=== PATIENT | female | born 1940 | race Two or more races ===

== ENCOUNTER 2017-01-20 01:04 | Observation (INO) | payer MEDICAID, OTHER ==
[~2017-01-20 01:04] MED LIST: LISI-515 PO; METF1000 PO
[2017-01-20 01:29] VITALS: BP 183/78; PULSE 84; RESP 16; TEMP 97.7; O2SAT 95
[2017-01-20] MEDS ORDERED: GLUCAGON 1 MG/ML VIAL IM PRN (02:30)
[2017-01-20] MEDS ORDERED: NALOXONE HCL 0.4 MG/ML AMP IV PUSH PRN (02:30)
[2017-01-20] MEDS ORDERED: ONDANSETRON HCL 4 MG/2 ML VIAL IVP PRN (02:30)
[2017-01-20] MEDS ORDERED: DEXTROSE 50% IN WATER 50 ML VIAL(D50) IV PUSH PRN ×2 (02:30→16:30)
[2017-01-20] MEDS ORDERED: ACETAMINOPHEN 325 MG TAB PO PRN (02:30)
[2017-01-20] MEDS ORDERED: SODIUM CHLORIDE 0.9% FLUSH 10 ML FLUSH IV FLUSH PRN (02:30)
[2017-01-20] MEDS ORDERED: DEXT 5%-NACL 0.45% 1000 ML INJ 1,000 ML IV SCH (03:15)
[2017-01-20 03:33] VITALS: BP 177/74; PULSE 84; RESP 16; TEMP 98.3; O2SAT 94
[2017-01-20 04:49] VITALS: PULSE 75
[2017-01-20 08:33] VITALS: BP 140/84; RESP 20; TEMP 97.8; O2SAT 96
[2017-01-20] MEDS: SODIUM CHLORIDE 0.9% FLUSH 10 ML FLUSH IV FLUSH SCH ×2 (09:00→21:00)
[2017-01-20 11:39] LABS: AUTOMATED NEUTROPHIL # 4.7 TH/MM3 (1.8-7.7); BASOPHIL % 0.7 % (0.0-2.0); EOSINOPHIL # 0.1 TH/MM3 (0-0.4); EOSINOPHIL % 1.9 % (0.0-4.0); HEMATOCRIT 35.3 % (35.0-46.0); HEMO FLAGS DIFF FINAL; LYMPH % 18.5 % (9.0-44.0); LYMPHOCYTE # 1.2 TH/MM3 (1.0-4.8); MEAN CELL VOLUME 85.6 FL (80.0-100.0); MEAN CORPUSCULAR HEMOGLOBIN 28.6 PG (27.0-34.0); MEAN CORPUSCULAR HGB CONC 33.4 % (32.0-36.0); MONO % 6.9 % (0.0-8.0); PLATELET COUNT 213 TH/MM3 (150-450); RED BLOOD COUNT 4.13 MIL/MM3 (4.00-5.30); WHITE BLOOD COUNT 6.5 TH/MM3 (4.0-11.0)
[2017-01-20 12:02] LABS: BICARBONATE 29.2 MEQ/L (21.0-32.0); POTASSIUM 3.2 MEQ/L (3.5-5.1)
--- NOTE | 2017-01-20 14:29 | HHI.HP ---
HPI Service [facility] Primary Care Physician Unknown Admission Diagnosis Diagnoses: (1) Hypoglycemia (2) Hypertension Chief Complaint: Hypoglycemia Travel History International Travel<30 Days: No Contact w/Intl Traveler <30 Da: No Traveled to Known Affected Are: No History of Present Illness is a 76-year-old female, Mandarin speaking patient, with a known medical history of diabetes mellitus and hypertension who presented to the ED with hypoglycemia. [employer] interpreting service was used for the interview with patient and family. Patient states that she was feeling dizzy and lightheaded for the past couple days. On Sunday afternoon patient's family noticed that she was unable to verbally respond and lethargic. Blood sugar on admission was 33. She was given 1 amp of D50 IV. After administration patient became more alert and awake. Currently patient is sitting up in bed awake, alert and oriented. Tolerating PO intake with no dysphagia. She has been compliant with her Metformin for control of her diabetes. She also states that she checks her blood sugar once a week. Upon presentation patient was also hypertensive, does take Lisinopril at home. Denies any recent fever, chills, headache, chest pain, palpitations, cough, shortness of breath, abdominal pain, nausea, vomiting, diarrhea or dysuria. Review of Systems Constitutional: DENIES: Fever, Chills Eyes: COMPLAINS OF: Blurred vision, DENIES: Diplopia, Vision loss Respiratory: DENIES: Cough, Wheezing, Shortness of breath Cardiovascular: DENIES: Chest pain Gastrointestinal: DENIES: Abdominal pain, Constipation, Diarrhea, Nausea, Vomiting Psychiatric: DENIES: Anxiety Except as stated in HPI: all other systems reviewed are Neg Past Family Social History Past Medical History Hypertension Diabetes mellitus Past Surgical History None Reported Medications Reported Meds & Active Scripts Active Reported Metformin (Metformin HCl) 1,000 Mg Tab 1,000 Mg PO BIDPC Lisinopril 20 Mg Tab 20 Mg PO DAILY Allergies: Coded Allergies: No Known Allergies (Unverified , 01/19/17) Active Ordered Medications Current Medications Medications (Trade) Dose Ordered Sig/Neelima Route Start Time Stop Time Status Last Admin (NS Flush) 2 ml UNSCH PRN IV FLUSH 01/20/17 02:30 (NS Flush) 2 ml BID IV FLUSH 01/20/17 09:00 (Tylenol) 650 mg Q4H PRN PO 01/20/17 02:30 01/20/17 09:36 (Zofran Inj) 4 mg Q6H PRN IVP 01/20/17 02:30 (Narcan Inj) 0.4 mg UNSCH PRN IV PUSH 01/20/17 02:30 (D50w (Vial) Inj) 50 ml UNSCH PRN IV PUSH 01/20/17 02:30 01/20/17 03:22 (Glucagon Inj) 1 mg STAT PRN IM 01/20/17 02:30 Dextrose/Sodium Chloride 1,000 ml @ 75 mls/hr [id number] IV 01/20/17 03:15 01/20/17 03:23 (Prinivil) 20 mg DAILY PO 01/20/17 15:00 (Glucophage) 500 mg BIDPC PO 01/20/17 18:00 Family History None Social History Denies any tobacco use. Denies any alcohol use. Denies any illicit drug use. Physical Exam Vital Signs Vital Signs Date Time Temp Pulse Resp B/P (MAP) Pulse Ox O2 Delivery O2 Flow Rate FiO2 01/20/17 08:33 97.8 20 140/84 (102) 96 01/20/17 04:49 75 01/20/17 03:33 98.3 84 16 177/74 (108) 94 01/20/17 01:29 97.7 84 16 183/78 (113) 95 Physical Exam GENERAL: This is a well-nourished, well-developed patient, in no apparent distress. Lying in bed comfortably. SKIN: No rashes, ecchymoses or lesions. Warm and dry. HEENT: Atraumatic. Normocephalic. Pupils equal round and reactive. Extraocular motions intact. No scleral icterus. No injection or drainage. Nose without bleeding. Throat without erythema, tonsillar hypertrophy or exudate. Uvula midline. Airway patent. NECK: Trachea midline. No JVD or lymphadenopathy. Supple. CARDIOVASCULAR: Regular rate and rhythm without murmurs, gallops, or rubs. RESPIRATORY: Clear to auscultation. Breath sounds equal bilaterally. No wheezes , rales, or rhonchi. GASTROINTESTINAL: Abdomen soft, non-tender, nondistended. . No guarding. MUSCULOSKELETAL: Extremities without clubbing, cyanosis, or edema. No joint tenderness, effusion, or edema noted. NEUROLOGICAL: Awake and alert. Cranial nerves II through XII intact. Motor and sensory grossly within normal limits. Five out of 5 muscle strength in all muscle groups. Normal speech. Laboratory Laboratory Tests Test 01/20/17 04:40 01/20/17 08:07 01/20/17 10:20 Total Creatine Kinase 28 28 Troponin I 0.08 0.08 White Blood Count 6.5 Red Blood Count 4.13 Hemoglobin 11.8 Hematocrit 35.3 Mean Corpuscular Volume 85.6 Mean Corpuscular Hemoglobin 28.6 Mean Corpuscular Hemoglobin Concent 33.4 Red Cell Distribution Width 15.0 Platelet Count 213 Mean Platelet Volume 8.1 Neutrophils (%) (Auto) 72.0 Lymphocytes (%) (Auto) 18.5 Monocytes (%) (Auto) 6.9 Eosinophils (%) (Auto) 1.9 Basophils (%) (Auto) 0.7 Neutrophils # (Auto) 4.7 Lymphocytes # (Auto) 1.2 Monocytes # (Auto) 0.5 Eosinophils # (Auto) 0.1 Basophils # (Auto) 0.0 CBC Comment DIFF FINAL Differential Comment Blood Urea Nitrogen 9 Creatinine 0.57 Random Glucose 241 Calcium Level 8.6 Sodium Level 140 Potassium Level 3.2 Chloride Level 105 Carbon Dioxide Level 29.2 Anion Gap 6 Estimat Glomerular Filtration Rate 104 Result Diagram: 01/20/17 1020 01/20/17 1020 Caprini VTE Risk Assessment Caprini VTE Risk Assessment: Mod/High Risk (score >= 2) Caprini Risk Assessment Model Point Value = 1 Point Value = 2 Point Value = 3 Point Value = 5 Age 41-60 Minor surgery BMI > 25 kg/m2 Swollen legs Varicose veins or History of unexplained or recurrent spontaneous Oral contraceptives or hormone replacement Sepsis (< 1 month) Serious lung disease, including pneumonia (< 1 month) Abnormal pulmonary function Acute myocardial infarction Congestive heart failure (< 1 month) History of inflammatory bowel disease Medical patient at bed rest Age 61-74 Arthroscopic surgery Major open surgery (> 45 min) Laparoscopic surgery (> 45 min) Malignancy Confined to bed (> 72 hours) Immobilizing plaster cast Central venous access Age >= 75 History of VTE Family history of VTE Factor V Leiden Prothrombin [id number] Lupus anticoagulant Anticardiolipin antibodies Elevated serum homocysteine Heparin-induced thrombocytopenia Other congenital or acquired thrombophilia Stroke (< 1 month) Elective arthroplasty Hip, pelvis, or leg fracture Acute spinal cord injury (< 1 month) Prophylaxis Regimen Total Risk Factor Score Risk Level Prophylaxis Regimen 0-1 Low Early ambulation 2 Moderate Order ONE of the following: *Sequential Compression Device (SCD) *Heparin 5000 units SQ BID 3-4 Higher Order ONE of the following medications: *Heparin 5000 units SQ TID *Enoxaparin/Lovenox 40 mg SQ daily (WT < 150 kg, CrCl > 30 mL/min) *Enoxaparin/Lovenox 30 mg SQ daily (WT < 150 kg, CrCl > 10-29 mL/min) *Enoxaparin/Lovenox 30 mg SQ BID (WT < 150 kg, CrCl > 30 mL/min) AND/OR *Sequential Compression Device (SCD) 5 or more Highest Order ONE of the following medications: *Heparin 5000 units SQ TID (Preferred with Epidurals) *Enoxaparin/Lovenox 40 mg SQ daily (WT < 150 kg, CrCl > 30 mL/min) *Enoxaparin/Lovenox 30 mg SQ daily (WT < 150 kg, CrCl > 10-29 mL/min) *Enoxaparin/Lovenox 30 mg SQ BID (WT < 150 kg, CrCl > 30 mL/min) AND *Sequential Compression Device (SCD) Assessment and Plan Assessment and Plan is a 76-year-old female, Mandarin speaking patient, with a known medical history of diabetes mellitus and hypertension who presented to the ED with hypoglycemia. [employer] interpreting service was used for the interview with patient and family. Patient states that she was feeling dizzy and lightheaded for the past couple days. On Sunday afternoon patient's family noticed that she was unable to verbally respond and lethargic. Blood sugar on admission was 23. She was given 1 amp of D50 IV. Type 2 Diabetes Mellitus chronic Hypoglycemia - Head CT was reviewed showing remote small infarct on the right. No acute findings. - CXR reviewed showing cardiomegaly. No focal infiltrate or effusion. - Was initially placed on D5 IVF, now stopped due to resolution of hypoglycemia. - Patient on Metformin 1000 mg PO BID at home, will decrease Metformin to 500 mg PO BID to prevent hypoglycemia. Patient encouraged to follow up with PCP after discharge. - ACCU checks ordered for ACHS, sliding scale insulin cover as needed. Hemoglobin a1C pending. Encouraged to have patient check blood sugars twice a day until seen by PCP. - Troponins flat x 3. EKG reviewed with LVH, no arrhythmias. Order for another EKG. Follow. Hypertension, chronic: BP on presentation was 183/78. Trending down. Restarted patient on her home Lisinopril. Continue to monitor. Currently 140/84. Hypokalemia: K 3.2. Replacement ordered. Monitor. DVT Prophylaxis: SCDs. Attestation Patient seen and examined with LOUISE Blakely. The exam, history, and the medical decision-making described in the above note were completed with the assistance of the dictating practitioner. I attest that I had a [id number] encounter with the patient on the same day, and personally performed all of the history, exam, or medical decision making. Discussed case with her thoroughly after seeing the patient, reviewed and agreed with the plan. Please see addendum in History, Physical examination. See below for any errata/additional input: Blood glucose now more stable. Mental status back to normal. Patient denies any chest pain, however very poor historian. Regular rate and rhythm, no murmurs Clear breath sounds Abdomen soft Moves extremities Troponin 3 mildly elevated. Repeat EKG showed mild ST depression in V3 to V5, mild LVH. No ST elevations. However patient is a poor historian with mild troponin elevation. Will consult cardiology. Arlet Hawkins Jan 20, 2017 14:29 Claude Silverio MD Jan 20, 2017 16:07
[2017-01-20] MEDS ORDERED: POTASSIUM CHLORIDE 25 MEQ EFFERVESCENT TAB PO ONE (15:00)
[2017-01-20] MEDS ORDERED: GLUCAGON 1 MG/ML VIAL OTHER PRN (16:30)
[2017-01-20] MEDS: INSULIN ASPART SUPPLEMENTAL SCALE SQ SCH ×2 (17:00→21:00)
[2017-01-20] MEDS: metFORMIN HCL 500 MG TAB PO SCH (17:47)
[2017-01-20] MEDS: LISINOPRIL 20 MG TAB PO SCH (18:00)
[2017-01-20] MEDS ORDERED: metFORMIN HCL 500 MG TAB PO SCH (18:00)
--- NOTE | 2017-01-20 19:04 | MB ---
cc: GERBER KAMINSKI DATE OF CONSULTATION: 01/20/2017. HISTORY OF PRESENT ILLNESS: is a 76-year-old [place]oth[place] female with a history of diabetes mellitus and hypertension. She presented with hypoglycemia. She has not had any chest pain or shortness of breath. She was found to have an abnormal EKG. PAST MEDICAL HISTORY: Positive for: 1. Hypertension. 2. Diabetes mellitus. 3. No previous cardiac history. MEDICATIONS: 1. Lisinopril 20 milligrams a day. 2. Metformin 1000 milligrams twice a day. ALLERGIES: None. SOCIAL HISTORY: The patient does not smoke. She does not drink alcohol. FAMILY HISTORY: Negative for heart disease. REVIEW OF SYSTEMS: Review of systems otherwise negative. PHYSICAL EXAMINATION: VITAL SIGNS: Blood pressure 140/84, pulse 75 and regular. HEAD, EYES, EARS, NOSE, THROAT: Negative. NECK: 2+ carotid upstrokes, no bruits. LUNGS: Clear. HEART: Regular with no murmurs, rubs or gallops. ABDOMEN: Abdomen soft. No bruits. EXTREMITIES: Without edema. 2+ distal pulses. NEUROLOGIC: Grossly nonfocal. EKGS: EKG was reviewed and showed normal sinus rhythm, normal axis, left ventricular hypertrophy and nonspecific S-T-T changes likely secondary to left ventricular hypertrophy. LABORATORY DATA: Hemoglobin 11.8. Potassium 3.2, creatinine 0.6, glucose 241. CK 28 and 28. Troponin 0.08 and 0.08. DIAGNOSIS: 1. An abdominal EKG consistent with left ventricular hypertrophy. 2. Hypertension. 3. Diabetes mellitus. 4. Mildly abnormal troponin. DISPOSITION: will be monitored on telemetry. We will obtain echocardiogram to evaluate her left ventricular function. We will also obtain serial EKGs and enzymes. I will follow her for cardiology during her hospitalization. MD MO Pena/UYEN /6:07 PM /6:58 PM
[2017-01-20 19:24] VITALS: BP 184/76; PULSE 71; RESP 20; TEMP 98.7; O2SAT 93
[2017-01-20] MEDS ORDERED: POTASSIUM CHLORIDE 10 MEQ CONTROLLED RELEASE TAB PO ONE (19:30)
[2017-01-20 20:00] VITALS: PULSE 70
[2017-01-21] VITALS (7 sets, daily range): BP systolic 158–178; BP diastolic 75–90; PULSE 73–82; RESP 16–20; TEMP 97.5–98.2; O2SAT 94–96
--- NOTE | 2017-01-21 06:00 | EKG ---
Date Performed: 01/20/2017 Time Performed: 15:49:59 PTAGE: 76 years EKG: ATRIAL FIBRILLATION ST DEVIATION AND MODERATE T-WAVE ABNORMALITY, CONSIDER ANTEROLATERAL IS CHEMIA ABNORMAL ECG NO PREVIOUS TRACING DOCTOR: Reinier Jorge Interpretating Date/Time 01/21/2017 05:56:11
[2017-01-21] MEDS: INSULIN ASPART SUPPLEMENTAL SCALE SQ SCH ×3 (08:00→17:00)
[2017-01-21 08:08] LABS: AUTOMATED NEUTROPHIL # 3.1 TH/MM3 (1.8-7.7); BASOPHIL % 0.8 % (0.0-2.0); EOSINOPHIL # 0.2 TH/MM3 (0-0.4); HEMATOCRIT 34.6 % (35.0-46.0); HEMO FLAGS DIFF FINAL; LYMPH % 33.5 % (9.0-44.0); LYMPHOCYTE # 1.9 TH/MM3 (1.0-4.8); MEAN CELL VOLUME 85.3 FL (80.0-100.0); MEAN CORPUSCULAR HEMOGLOBIN 28.8 PG (27.0-34.0); MEAN CORPUSCULAR HGB CONC 33.7 % (32.0-36.0); MONO % 6.3 % (0.0-8.0); NEUT % 55.4 % (16.0-70.0); PLATELET COUNT 199 TH/MM3 (150-450); RED BLOOD COUNT 4.06 MIL/MM3 (4.00-5.30); RED CELL DISTRIBUTION WIDTH 14.6 % (11.6-17.2); WHITE BLOOD COUNT 5.5 TH/MM3 (4.0-11.0)
[2017-01-21 08:39] LABS: ALKALINE PHOSPHATASE 45 U/L (45-117); ALT (GPT) 13 U/L (10-53); ANION GAP 7 MEQ/L (5-15); AST (GOT) 8 U/L (15-37); BICARBONATE 27.1 MEQ/L (21.0-32.0); BLOOD UREA NITROGEN 10 MG/DL (7-18); CHLORIDE 108 MEQ/L (98-107); GLOMERULAR FILTRATION RATE 144 ML/MIN (>89); POTASSIUM 3.5 MEQ/L (3.5-5.1); SODIUM (NA) 142 MEQ/L (136-145); TOTAL BILIRUBIN ADULT 0.7 MG/DL (0.2-1.0)
[2017-01-21] MEDS ORDERED: HYDROCHLOROTHIAZIDE 12.5 MG CAP PO SCH (09:00)
[2017-01-21] MEDS ORDERED: POTASSIUM CHLORIDE 10 MEQ CAP PO SCH (09:00)
[2017-01-21] MEDS: SODIUM CHLORIDE 0.9% FLUSH 10 ML FLUSH IV FLUSH SCH (09:00)
[2017-01-21] MEDS: LISINOPRIL 20 MG TAB PO SCH (09:02)
[2017-01-21] MEDS: metFORMIN HCL 500 MG TAB PO SCH ×2 (09:03→17:15)
--- NOTE | 2017-01-21 10:31 | HHI.PR ---
Subjective Remarks Follow up hypoglycemia and hypertension. Patient seen and examined in room, daughter at bedside. [facility] interpreting service used for communication purposes. Patient had a good night, denies any new acute events. Slept well. Denies any chest pain, shortness of breath, dizziness, headache. Tolerating PO intake. Denies any abdominal pain, nausea, vomiting or diarrhea. Objective Vitals Vital Signs Date Time Temp Pulse Resp B/P (MAP) Pulse Ox O2 Delivery O2 Flow Rate FiO2 01/21/17 08:42 98.2 82 16 169/90 (116) 95 01/21/17 04:00 73 01/21/17 03:57 98.0 74 16 178/75 (109) 96 01/21/17 00:04 97.5 77 16 168/80 (109) 94 01/21/17 00:00 73 01/20/17 20:00 70 01/20/17 19:24 98.7 71 20 184/76 (112) 93 01/20/17 10:36 20 I/O 01/20/17 01/20/17 01/20/17 01/21/17 01/21/17 01/21/17 07:00 15:00 23:00 07:00 15:00 23:00 Intake Total 800 ml Balance 800 ml Intake Oral 500 ml IV Total 300 ml # Voids 2 3 2 Result Diagram: 01/21/17 0653 01/21/17 0653 Objective Remarks GENERAL: This is a well-nourished, well-developed patient, in no apparent distress. Lying in bed comfortably. SKIN: No rashes, ecchymoses or lesions. Warm and dry. HEENT: Atraumatic. Normocephalic. Pupils equal round and reactive. Extraocular motions intact. No scleral icterus. No injection or drainage. Nose without bleeding. Throat without erythema, tonsillar hypertrophy or exudate. Uvula midline. Airway patent. NECK: Trachea midline. No JVD or lymphadenopathy. Supple. CARDIOVASCULAR: Regular rate and rhythm without murmurs, gallops, or rubs. RESPIRATORY: Clear to auscultation. Breath sounds equal bilaterally. No wheezes , rales, or rhonchi. GASTROINTESTINAL: Abdomen soft, non-tender, nondistended. . No guarding. MUSCULOSKELETAL: Extremities without clubbing, cyanosis, or edema. No joint tenderness, effusion, or edema noted. NEUROLOGICAL: Awake and alert. Cranial nerves II through XII intact. Motor and sensory grossly within normal limits. Five out of 5 muscle strength in all muscle groups. Normal speech. A/P Problem List: (1) Hypoglycemia ICD Code: E16.2 - Hypoglycemia, unspecified (2) Hypertension ICD Code: I10 - Essential (primary) hypertension Assessment and Plan is a 76-year-old female, Mandarin speaking patient, with a known medical history of diabetes mellitus and hypertension who presented to the ED with hypoglycemia. [employer] interpreting service was used for the interview with patient and family. Patient states that she was feeling dizzy and lightheaded for the past couple days. On Sunday afternoon patient's family noticed that she was unable to verbally respond and lethargic. Blood sugar on admission was 23. She was given 1 amp of D50 IV. Type 2 Diabetes Mellitus chronic Hypoglycemia - Head CT was reviewed showing remote small infarct on the right. No acute findings. - CXR reviewed showing cardiomegaly. No focal infiltrate or effusion. - Was initially placed on D5 IVF, now stopped due to resolution of hypoglycemia. - Mental status intact, AxOx4. - Patient on Metformin 1000 mg PO BID at home, have decreased Metformin to 500 mg PO BID to prevent hypoglycemia. Patient encouraged to follow up with PCP after discharge. - ACCU checks ordered for ACHS, sliding scale insulin cover as needed. Hemoglobin a1C pending. Encouraged to have patient check blood sugars twice a day until seen by PCP. - Troponins flat x 3. EKG reviewed with LVH, no arrhythmias. EKG showing LVH. Cardiology consulted and has seen patient, ECHO ordered and pending. Follow. If negative today, will discharge later. Hypertension, chronic: BP still elevated. Restarted patient on her home Lisinopril. Added HCTZ 12.5 mg PO daily. Will continue to monitor BP trends. Hypokalemia: Status post replacement. K 3.5. DVT Prophylaxis: SCDs. Discharge Planning Dr. Angeles at bedside and cleared for discharge, still awaiting ECHO but can call for results. Recommendations to follow up with PCP in 2-3 days. No CP. No cardiac complaints. Blood sugars well controlled. Hba1C controlled, will dc on Metformin 500 mg PO BID (changed from 1000 mg PO BID). Encouraged to follow up with PCP for further management. Patient understanding. BP mildly elevated. GIven one dose of Clonidine and started on HCTZ to supplement home Lisinopril. Monitor BP at home and continue follow up with PCP. Arlet Hawkins Jan 21, 2017 10:30
[2017-01-21 11:57] LABS: HEMOGLOBIN A1a 1.2 %; HEMOGLOBIN A1b 1.1 %; HEMOGLOBIN Ao 84.8 %; HEMOGLOBIN LA1C 2.4 %; HEMOGLOBIN P3 3.4 %
--- NOTE | 2017-01-21 16:05 | PD.CARD.PN ---
Subjective Subjective Remarks No CP or SOB, feels fine, family present and interpreting Objective Medications Administered Medications Medications (Trade) Dose Ordered Sig/Neelima Route PRN Reason Start Time Stop Time Status Last Admin Dose Admin Sodium Chloride (NS Flush) 2 ml BID IV FLUSH 01/20/17 09:00 01/21/17 09:00 Acetaminophen (Tylenol) 650 mg Q4H PRN PO TEMP > 100.4 01/20/17 02:30 01/20/17 09:36 Dextrose (D50w (Vial) Inj) 50 ml UNSCH PRN IV PUSH HYPOGLYCEMIA-SEE COMMENTS 01/20/17 02:30 01/20/17 03:22 Lisinopril (Prinivil) 20 mg DAILY PO 01/20/17 15:00 01/21/17 09:02 Metformin HCl (Glucophage) 500 mg BIDPC PO 01/20/17 18:00 01/21/17 09:03 Insulin Aspart (NovoLOG SUPPLEMENTAL SCALE) 1 ACHS SLIDING SCALE SQ 01/20/17 17:00 01/21/17 13:58 Hydrochlorothiazide (Microzide) 12.5 mg DAILY PO 01/21/17 09:00 01/21/17 09:02 Potassium Chloride (KCl) 10 meq DAILY PO 01/21/17 09:00 01/21/17 09:05 Vital Signs / I&O Vital Signs Date Time Temp Pulse Resp B/P (MAP) Pulse Ox O2 Delivery O2 Flow Rate FiO2 01/21/17 12:00 98.0 79 20 170/79 (109) 95 01/21/17 08:42 98.2 82 16 169/90 (116) 95 01/21/17 04:00 73 01/21/17 03:57 98.0 74 16 178/75 (109) 96 01/21/17 00:04 97.5 77 16 168/80 (109) 94 01/21/17 00:00 73 01/20/17 20:00 70 01/20/17 19:24 98.7 71 20 184/76 (112) 93 I/O 01/20/17 01/20/17 01/20/17 01/21/17 01/21/17 01/21/17 07:00 15:00 23:00 07:00 15:00 23:00 Intake Total 800 ml Balance 800 ml Intake Oral 500 ml IV Total 300 ml # Voids 2 3 2 Physical Exam GENERAL: In NAD. SKIN: Warm and dry. HEAD: Normocephalic. EYES: No scleral icterus. No injection or drainage. NECK: Supple, trachea midline. No JVD or lymphadenopathy. CARDIOVASCULAR: Regular rate and rhythm without murmurs, gallops, or rubs. RESPIRATORY: Breath sounds equal bilaterally. No accessory muscle use. GASTROINTESTINAL: Abdomen soft, non-tender, nondistended. MUSCULOSKELETAL: No cyanosis, or edema. Laboratory Laboratory Tests Test 01/21/17 06:53 White Blood Count 5.5 TH/MM3 Red Blood Count 4.06 MIL/MM3 Hemoglobin 11.7 GM/DL Hematocrit 34.6 % Mean Corpuscular Volume 85.3 FL Mean Corpuscular Hemoglobin 28.8 PG Mean Corpuscular Hemoglobin Concent 33.7 % Red Cell Distribution Width 14.6 % Platelet Count 199 TH/MM3 Mean Platelet Volume 8.0 FL Neutrophils (%) (Auto) 55.4 % Lymphocytes (%) (Auto) 33.5 % Monocytes (%) (Auto) 6.3 % Eosinophils (%) (Auto) 4.0 % Basophils (%) (Auto) 0.8 % Neutrophils # (Auto) 3.1 TH/MM3 Lymphocytes # (Auto) 1.9 TH/MM3 Monocytes # (Auto) 0.3 TH/MM3 Eosinophils # (Auto) 0.2 TH/MM3 Basophils # (Auto) 0.0 TH/MM3 CBC Comment DIFF FINAL Differential Comment Blood Urea Nitrogen 10 MG/DL Creatinine 0.43 MG/DL Random Glucose 129 MG/DL Total Protein 6.6 GM/DL Albumin 3.4 GM/DL Calcium Level 8.5 MG/DL Alkaline Phosphatase 45 U/L Aspartate Amino Transf (AST/SGOT) 8 U/L Alanine Aminotransferase (ALT/SGPT) 13 U/L Total Bilirubin 0.7 MG/DL Sodium Level 142 MEQ/L Potassium Level 3.5 MEQ/L Chloride Level 108 MEQ/L Carbon Dioxide Level 27.1 MEQ/L Anion Gap 7 MEQ/L Estimat Glomerular Filtration Rate 144 ML/MIN Assessment and Plan Problem List: (1) Hypoglycemia ICD Codes: E16.2 - Hypoglycemia, unspecified (2) Diabetes ICD Codes: E11.9 - Type 2 diabetes mellitus without complications (3) Hypertension ICD Codes: I10 - Essential (primary) hypertension (4) Abnormal EKG ICD Codes: R94.31 - Abnormal electrocardiogram [ECG] [EKG] Assessment and Plan Remains stable. No angina or CHF symptoms. Troponin slightly elevated, but not trending in either direction. Echo pending, if OK, discharge home and f/u w PCP. Olinda Angeles MD Jan 21, 2017 16:05
[2017-01-21] MEDS ORDERED: cloNIDine HCL 0.1 MG TAB PO ONE (16:45)
[2017-01-21] MEDS ORDERED: cloNIDine HCL 0.1 MG TAB PO PRN (16:45)
[2017-01-21] MEDS ORDERED: HYDR12.57 PO (16:46)
[2017-01-21] MEDS ORDERED: METF500 PO (16:46)
--- NOTE | 2017-01-21 16:46 | HHI.DCPOC ---
Discharge Care Plan Diagnosis: (1) Hypoglycemia (2) Diabetes (3) Hypertension Additional Problems High blood pressure Diabetes Goals to Promote Your Health * To prevent worsening of your condition and complications * To maintain your health at the optimal level Directions to Meet Your Goals Take your medications as prescribed Follow your dietary instruction Follow activity as directed Keep your appointments as scheduled Take your immunizations and boosters as scheduled If your symptoms worsen call your PCP, if no PCP go to Urgent Care Center or Emergency Room Smoking is Dangerous to Your Health. Avoid second hand smoke Call the 24-hour hour crisis hotline for domestic abuse at Arlet Hawkins Jan 21, 2017 16:46
== END 2017-01-21 18:17 | disposition home or self-care (01) ==
LOC: NEDDLT 01:04 → NEPGCP 01:07
PROVIDERS: ADMIT Hospitalist; ATTEND Hospitalist
DX: E11.649 Type 2 diabetes mellitus with hypoglycemia without coma (principal); I10 Essential (primary) hypertension; I51.7 Cardiomegaly; I48.91 Unspecified atrial fibrillation; E87.6 Hypokalemia; R94.31 Abnormal electrocardiogram [ECG] [EKG]; Z79.84 Long term (current) use of oral hypoglycemic drugs
CPT/HCPCS: 70450; 71010; 80048; 80053; 82550; 82948; 83036; 83735; 84484; 85025; 93005; 93306; 96360; G0378; J0360; J1815; 99281